=== PATIENT | male | born 1950 | race Caucasian/White ===

== ENCOUNTER 2017-01-13 18:31 | Emergency (ER) | payer BC ==
[~2017-01-13] VITALS: Ht 172.7 cm; Wt 78.0 kg
--- NOTE | 2017-01-13 18:35 | NUR ---
WOLIA ERVIN DONE
--- NOTE | 2017-01-13 18:45 | NUR ---
PT PRESENTED TO THE ER WITH A C/O LEFT HAND 5TH DIGIT/ NAIL INJURY. ACTIVE BLEEDING NOTED.
--- NOTE | 2017-01-13 19:13 | NUR ---
REPORT GIVEN TO ED, LAMINATION SPINNER FOR GRABIEL.
[2017-01-13] MEDS ORDERED: TDAP [DIPH/PERTUSSIS/TET] 0.5 ML VIAL IM ONE ×2 (19:30→19:46)
[2017-01-13] MEDS ORDERED: BUPIVACAINE 0.5 % PF 150 MG/30 ML VIAL TP ONE (19:30)
--- NOTE | 2017-01-13 19:30 | NUR ---
YOLANDA MENJIVAR AT BEDSIDE FOR LACERATION REPAIR OF LEFT HAND FIFTH DIGIT.
--- NOTE | 2017-01-13 19:59 | NUR ---
TDAP IM GIVEN ON RIGHT DELTOID.
--- NOTE | 2017-01-13 20:15 | NUR ---
EMT AT BEDSIDE FOR WOUND CARE.
--- NOTE | 2017-01-13 20:28 | NUR ---
Patient discharged to home in stable condition. Written and verbal after care instructions given. Patient verbalizes understanding of instruction.
[2017-01-13 20:29] VITALS: BP 137/63
[2017-01-13] MEDS ORDERED: CEPHALEXIN MONOHYDRATE 500 MG CAPSULE PO ONE (20:30)
== END 2017-01-13 20:30 | disposition home or self-care (01) ==
LOC: ER 18:39
DX: S62.637B Displaced fracture of distal phalanx of left little finger, initial encounter for open fracture (principal); S61.217A Laceration without foreign body of left little finger without damage to nail, initial encounter; E78.00 Pure hypercholesterolemia, unspecified; W23.0XXA Caught, crushed, jammed, or pinched between moving objects, initial encounter; Y93.89 Activity, other specified; Y92.89 Other specified places as the place of occurrence of the external cause; Y99.8 Other external cause status
CPT/HCPCS: 29130; 73140; 90471; 90715; 99284; A4606; A6402; Z7610